=== PATIENT | female | born 1945 | race Caucasian/White ===

== ENCOUNTER 2016-12-24 10:24 | Emergency (ER) | payer OTHER ==
[2016-12-24 10:30] VITALS: BP 116/74; BMI 25.3
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
[2016-12-24] MEDS ORDERED: VISTARIL PO ONE ×2 (10:55→11:04)
[2016-12-24 11:20] LABS: BASOPHILS # (AUTO) 0.1 X10^3/uL (0.0-0.1); BASOPHILS % (AUTO) 0.8 % (0.2-1.0); EOSINOPHILS # (AUTO) 0.1 x10^3/uL (0.0-0.2); EOSINOPHILS % (AUTO) 0.5 % (0.9-2.9); HEMOGLOBIN 13.8 g/dL (12.0-16.0); LYMPHOCYTES # (AUTO) 2.2 X10^3/uL (1.3-2.9); LYMPHOCYTES % (AUTO) 22.4 % (21.0-51.0); MEAN CORPUSCULAR HGB CONC 35.4 g/dL (33.0-35.0); MEAN CORPUSCULAR VOLUME 76.4 fL (80.0-100.0); MEAN PLATELET VOLUME 7.3 fL (7.4-11.0); MONOCYTES # (AUTO) 0.7 x10^3/uL (0.3-0.8); MONOCYTES % (AUTO) 7.1 % (0.0-13.0); NEUTROPHILS # (AUTO) 6.7 x10^3/uL (2.2-4.8); NEUTROPHILS % (AUTO) 69.2 % (42.0-75.0); PLATELET COUNT 367 X10^3/uL (150.0-450.0); RED BLOOD COUNT 5.11 X10^6/uL (3.5-5.4); RED CELL DISTRIBUTION WIDTH 13.5 % (11.6-16.5); WHITE BLOOD COUNT 9.6 X10^3/uL (3.6-10.0)
[2016-12-24 11:35] LABS: BLOOD UREA NITROGEN 10 mg/dL (7-18); CALCIUM 8.8 mg/dL (8.5-10.1); CARBON DIOXIDE 25.8 mmol/L (21-32); CHLORIDE 97 mmol/L (98-107); COR NA(FOR HYPERGLY) 134 mmol/L (136-145); CREATININE 0.85 mg/dL (0.55-1.02); GLUCOSE 137 mg/dL (65-99); SODIUM 133 mmol/L (136-145); TROPONIN I < 0.02 ng/mL (0-1.5); eGFR BLACK RACES > 60 (>60); eGFR NON BLACK RACES > 60 (>60)
[2016-12-24 11:39] LABS: ALANINE AMINOTRANSFERASE 21 Units/L (12-78); ALBUMIN 4.3 g/dL (3.4-5.0); ALKALINE PHOSPHATASE 39 Units/L (46-116); ASPARTATE AMINO TRANSFERASE 22 Units/L (15-37); CREATINE KINASE 54 Units/L (26-192); CREATINE KINASE MB < 1.0 ng/mL (0-4.0); TOTAL PROTEIN 8.2 g/dL (6.4-8.2)
[2016-12-24 11:47] LABS: CKMB % 1.9 % (<4)
[2016-12-24] MEDS ORDERED: POTASSIUM CHLORIDE LIQ 20 MEQ UDC PO ONE (11:50)
[2016-12-24] MEDS ORDERED: POTASSIUM CHLORIDE LIQ 20 MEQ UDC ONE (12:13)
--- NOTE | 2016-12-24 12:26 | RAD ---
HISTORY: Severe anxiety Study: Single-view chest, done portably Comparison: No priors Findings: The trachea is midline. Heart size is upper normal. There are bilateral foci of atelectasis or scarr ing in the lung bases. No dense consolidation, pleural fluid or pneumothorax is seen. Osseous struct ures are intact. IMPRESSION: Bibasilar atelectasis or scarring. No consolidation is seen. Reported By:
== END 2016-12-24 12:23 | disposition home or self-care (01) ==
LOC: ER 10:35
DX: F41.8 Other specified anxiety disorders (principal); F43.21 Adjustment disorder with depressed mood; R06.02 Shortness of breath; J98.11 Atelectasis; I10 Essential (primary) hypertension
CPT/HCPCS: 36415; 71010; 80053; 82550; 82553; 83880; 84443; 84484; 85025; 93005; 93010; 99283; Q0177